=== PATIENT | male | born 1970 | race Two or more races ===

== ENCOUNTER 2024-11-25 08:30 | Day surgery (SDC) | payer MEDICAID, SELFPAY ==
--- NOTE | 2024-11-22 10:13 | EKG_ITS ---
[facility] Test Date: 2024-11-22 Pat Name: VIVIAN MARADIAGA Department: Room: - Gender: Male Machine Technician: SANDRA : 1970 Requested By: Areli Jaramillo Order Number: [id number] Reading MD: Areli Jaramillo Measurements Intervals [place] Rate: 47 P: 55 [place]: 192 QRS: 61 QRSD: 106 T: 44 QT: 438 QTc: 389 Interpretive Statements SINUS BRADYCARDIA No previous ECG available for comparison /[id number]
[2024-11-22 10:17] VITALS: BMI 38.7
[2024-11-22 12:17] LABS: Basophils # (Auto) 0.1 Thou/mm3 (0.0-0.2); Basophils % (Auto) 1 % (0-2.5); Eosinophils # (Auto) 0.5 Thou/mm3 (0.0-0.5); Eosinophils % (Auto) 7 % (0-10); Hematocrit 45.0 % (41.0-53.0); Hemoglobin 15.0 g/dL (13.5-16.0); Immature Granulocytes Auto 0.03 Thou/mm3 (0.00-0.00); Lymphocytes # (Auto) 1.7 Thou/mm3 (1.0-4.8); Lymphocytes % (Auto) 26 % (10-50); Mean Corpuscular HGB Conc 33.3 g/dl (31.0-37.0); Mean Corpuscular Hemoglobin 29.7 pg (25.0-35.0); Mean Corpuscular Volume 89 fL (80-100); Monocytes # (Auto) 0.6 Thou/mm3 (0.0-0.8); Monocytes % (Auto) 9 % (0-12); Neutrophils # (Auto) 3.6 Thou/mm3 (1.8-7.7); Neutrophils % (Auto) 56 % (37-80); Nucleated Red Blood Cell # 0.00 Thou/mm3 (0.00-0.00); Nucleated Red Blood Cell % 0 /100 WBC (0); Platelet Count 165 Thou/mm3 (140-440); RDW Standard Deviation 44.7 fL (35.1-43.9); Red Blood Count 5.05 Miln/mm3 (4.50-5.90); White Blood Count 6.5 Thou/mm3 (3.8-10.6)
[2024-11-22 12:26] LABS: Anion Gap 11 (7-16); BUN/Creatinine Ratio 14 Ratio (12-20); Blood Urea Nitrogen 17 mg/dL (9-23); Calcium 10.0 mg/dL (8.3-10.6); Carbon Dioxide 27.0 mMol/L (20.0-31.0); Chloride 104 mMol/L (98-107); Creatinine (Component) 1.2 mg/dL (0.6-1.3); Estimated Creatinine Clearance 79.6 mL/min (>60); Glucose 113 mg/dL (74-106); Osmolality,Calculated 285 (275-295); Potassium 4.2 mMol/L (3.4-5.1); Sodium 142 mMol/L (136-145); eGFR > 60 See Note
[2024-11-25] VITALS (12 sets, daily range): BP systolic 125–165; BP diastolic 75–103; PULSE 51–113; RESP 12–18; TEMP 36.3–36.6; O2SAT 93–99; BMI 36.6
[2024-11-25] MEDS: RINGERS LACTATED 1000 ML 1,000 ML 20 ML IV (09:30)
--- NOTE | 2024-11-25 11:03 | ESOP_ITS ---
Date of Procedure 11/25/24 Pre Op Diagnosis Incarcerated umbilical hernia Post Op Diagnosis Incarcerated umbilical hernia Procedure Laparoscopic assisted repair of incarcerated umbilical hernia with mesh Findings An approximately 3.5 cm umbilical hernia defect with incarcerated omentum Procedure Description Patient brought into the operating room in supine position. After administration of general orotracheal anesthesia, patient's abdomen prepped and draped in standard surgical manner. A 5 mm incision was made in left upper quadrant and Veress needle was inserted, pneumoperitoneum was obtained to 15 mmHg. The Veress needle was removed and a 5 mm trocar was placed. Laparoscopic camera was inserted, under direct visualization a laparoscopic camera a 5 mm trocar placed in left lower quadrant and additional 5 mm trocar placed in right lower quadrant. The abdomen was inspected and patient was noted to have an incarcerated umbilical hernia with omentum being incarcerated within the hernia sac. The hernia sac was excised with Harmonic scalpel laparoscopically and the omentum was reduced. At this point approximately 3 cm semicircular incision was made inferior to the umbilicus and dissection was carried to subcutaneous tissue. The hernia sac was circumferentially dissected off surrounding tissue and excised from surrounding abdominal fascia. The fascia was cleared from overlying tissue. The defect was approximately 3.5 cm in diameter. A 4 x 6 elliptical shape proceed mesh was used to cover the defect. 2 tacking sutures using 0 Ethibond placed the 2 ends of the mesh and the mesh was placed inside the abdominal cavity through the hernia defect. The defect was closed with interrupted sutures using 0 Ethibond. The umbilicus was tacked into the underlying abdominal fascia was 2-0 Vicryl suture in subcutaneous tissue closed with interrupted sutures of 2-0 Vicryl. The abdomen was once again insufflated. 2 tacking sutures of the 2 ends of the mesh were retrieved through the previously marked abdominal wall site. Sutures were tightened and the mesh was further secured into anterior abdominal wall with secure strap tacking device. The mesh was covering the defect with at least 4 cm circumferential margin. Hemostasis was adequate and satisfactory. Instruments and trocars removed, pneumoperitoneum was evacuated and the incisions closed 4-0 Monocryl subcuticular fashion. Instruments, needles and sponge counts were reported to be correct ?2 patient tolerated the procedure well. Patient was extubated, breathing spontaneously and without difficulty and was transferred to postanesthesia care in stable condition. Anesthesia GETA and local Pathology / specimen Other (Hernia sac) Estimated Blood Loss 10 Condition Stable Disposition PACU Surgeon Areli Jaramillo MD Surgical Staff Operation Date: 11/25/24 10:30 Case Staff FIELD SERVICE TECHNICIAN: Mathew Genao RN First Assistant: Rajni Carrera
--- NOTE | 2024-11-25 11:21 | SUR.PHASEI ---
1121: Pt. AAOx4, vitals stable, breathing unlabored, noc omplaint of pain or nausea, x4 dermabond sites to ABD CDI, no active bleed noted, report received from Mathew SIERRA and Nydia PAULSON.
[2024-11-25] MEDS: HYDROmorphone INJ 2 MG/ML VIAL 0.5 MG IVP (11:30)
[2024-11-25] MEDS: fentaNYL CIT INJ 50 mCg/ML AMP 2ML IVP ×2 (11:36→11:45)
--- NOTE | 2024-11-25 11:55 | SUR.PHASEII ---
1155: Report given to Regina PAULSON. Pt. AAOx4, vitals stable, breathing unlabored, no complaint of pain or nausea, dressing to ABD CDI.
--- NOTE | 2024-11-25 12:26 | SUR.PHASEII ---
1226: Pt. AAOx4, vitals stable, breathing unlabored, no complaint of pain or nausea, dressing to ABD CDI, pt. meets discharge criteria, currently waiting for pt. ride home. Report received from Regina PAULSON.
[2024-11-25] MEDS: ONDANSETRON INJ 2 MG/ML INJ 2 ML 4 MG IVP (13:11)
--- NOTE | 2024-11-25 13:30 | SUR.PHASEII ---
1330: Pt. AAOx4, vitals stable, breathing unlabored, no complaint of pain or nausea, dressing to ABD CDI, no active bleed noted, pt. tolerated sips of soda well, pt. ambulated to wheelchair with steady gait and no assist, no complications. Gave discharge instructions to the pt. and his ride, both verbalized understanding and had no further questions. Pt. left with all personal belongings.
== END 2024-11-25 13:30 | disposition home or self-care (01) ==
PROVIDERS: PCP Physician Assistant; Referring Provider Surgery; Visit Provider Surgery
PROC: 0WQF4ZZ Repair Abdominal Wall, Percutaneous Endoscopic Approach (ICD-10-PCS; CPT 49594; principal; 2024-11-25 10:15)
DX: K42.0 Umbilical hernia with obstruction, without gangrene (principal); Z01.810 Encounter for preprocedural cardiovascular examination; E11.9 Type 2 diabetes mellitus without complications; I10 Essential (primary) hypertension; Z79.899 Other long term (current) drug therapy
CPT/HCPCS: 49594; 36415; 80048; 85025; 93005; A4217; A4649; C1781; J0360; J0461; J0690; J1100; J1171; J1885; J2405; J2704; J3010; J3490; J7120; J1805